=== PATIENT | male | born 1985 | race Caucasian/White ===

== ENCOUNTER 2018-08-18 14:22 | Emergency (ER) | payer SELFPAY ==
[~2018-08-18] VITALS: Ht 165.1 cm; Wt 77.1 kg
[2018-08-18 15:07] VITALS: BP 143/85; Ht 165.1 cm; Wt 77.1 kg
== END 2018-08-18 18:10 | disposition home or self-care (01) ==
LOC: ED 14:22
DX: N50.812 Left testicular pain (principal); N50.811 Right testicular pain
CPT/HCPCS: Q0092